=== PATIENT | female | born 1935 | race Caucasian/White ===

== ENCOUNTER 2016-09-05 11:23 | Emergency (ER) | payer OTHER ==
[~2016-09-05 11:23] MED LIST: LISINOPRIL10 MG PO; PRINIVIL5 MG PO; SYNTHROID50 MCG PO; TRAZODONE HCL50 MG PO; VITAMIN D-31000 UNIT PO
--- NOTE | 2016-09-05 13:31 | DIAGNOSTIC IMAGING REPORT ---
PROCEDURE: XR ELBOW 3 OR 4 VIEWS - LEFT INDICATION: TRAUMA/INJURY TECHNIQUE: Four views. COMPARISON: None. FINDINGS: Osseous structures, joint spaces, and soft tissues are normal. No evidence of an effusion. IMPRESSION: 1. Normal left elbow.
--- NOTE | 2016-09-05 13:35 | DIAGNOSTIC IMAGING REPORT ---
PROCEDURE: XR RIBS UNILAT W/PA CHEST-LT INDICATION: TRAUMA/INJURY TECHNIQUE: P A chest and two views of the left ribs. COMPARISON: Chest x-ray 12/10/2015 FINDINGS: Acute nondisplaced fracture of the left 12th rib and mildly displaced left eleventh rib. Lungs are clear. Heart size, mediastinum and pulmonary vessels are normal. IMPRESSION: 1. Acute fractures of the left eleventh and twelfth ribs 2. Results discussed with Dr. Grady
--- NOTE | 2016-09-05 14:33 | ED CLINICAL REPORT ---
Clinical Report - Physicians/Mid Levels [facility] [address] [place] [address] 09/05/2016 11:24 Patient: YAHAIRA STALLWORTH Time Seen: 11:46; initial patient contact. Arrived- By private vehicle. Historian- patient. HISTORY OF PRESENT ILLNESS Chief Complaint: Injury to CHEST and BACK. Location of injuries- chest, mid back and left elbow. The injury occurred about 2 days ago. Fell while walking and landed on the ground; tripped. Occurred at home. The patient complains of moderate pain in the chest, mid back and left upper extremity (elbow). No blow to the head, neck pain or loss of consciousness. Not dazed. Seen at [facility] 2 days ago, head CT. No plain films done. Serum EtOH level 154. REVIEW OF SYSTEMS No numbness, weakness, headache, difficulty breathing or laceration. She has had chest pain. All systems otherwise negative, except as recorded above. PAST HISTORY Drug Poisoning. Changed Mental Status. Thyroid Disease. Insomnia. Dementia. Hypertension. SURGERIES: Hysterectomy. 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 Levothyrixoine 50mcg 1 tab.-morning. Lisinopril 5mg 1 tab twice daily. Trazodone 50mg -1/2 tab at bedtime. Vitamin D3 2,000 1 daily. Allergies: No Known Drug Allergy. SOCIAL HISTORY Never smoker. Occasional alcohol use. No drug use. PHYSICAL EXAM Appearance: Alert. Oriented X3. No acute distress. Head: Forehead: mild tenderness and swelling and small ecchymosis of the upper left side of the forehead. Eyes: Pupils equal, round and reactive to light. EOM intact. ENT: No dental injury. Pharynx normal. Neck: Painless ROM. Non-tender. CVS: Heart sounds normal. Rate normal. Rhythm normal. Respiratory: Chest wall injury: moderate tenderness located in the left and lateral chest. No splinting present. No paradoxical movement. Breath sounds normal. Abdomen: No visible injury. Soft and nontender. Bowel sounds normal. Skin: Skin intact. Skin warm and dry. Extremities: Left elbow: mild erythema, moderate tenderness and medium sized ecchymosis. No swelling. Neuro: Oriented X 3. LABS, X-RAYS, AND EKG Sternum / Ribs X-rays: On the left, 11th and 12th rib fracture(s) present. Views: left ribs. PA and lateral of chest. Technique: good. The X-rays were independently viewed by me and interpreted contemporaneously by me. Prior films were not available for comparison. Lt Elbow X-ray: No fracture. Normal alignment. No bony lesion, air in the soft tissue or foreign body. Soft tissues normal. Joint spaces normal. Views: 2 view elbow series. Technique: good. The X-rays were independently viewed by me and interpreted contemporaneously by me. Prior films were not available for comparison. PROGRESS AND PROCEDURES Disposition: Discharged home in good condition. Condition: good. CLINICAL IMPRESSION Multiple left rib fractures. Single contusion with soft tissue hematoma to the left elbow. INSTRUCTIONS Apply ice for 20 minutes five times a day. Don't apply ice directly to skin. No alcohol. Your Current Medications: CONTINUE TAKING THE FOLLOWING MEDICATIONS: Levothyrixoine 50mcg 1 tab.-morning*. Lisinopril 5mg 1 tab twice daily*. Medications pulled from prior visit: activities specialist/patient does not recall meds *. Trazodone 50mg -1/2 tab at bedtime*. Vitamin D3 2,000 1 daily*. Prescription Medications: Hydrocodone/APAP 5mg / 325mg: take 1 orally every 6 hours as needed for pain. Dispense twenty (20). No refill. Follow-up: Follow up with your doctor in about two days. Call for an appointment. Blood pressure screening was not performed during this visit because the patient has an active diagnosis of hypertension. (Electronically signed by Jorge Grady Dr. 09/05/2016 22:26)
--- NOTE | 2016-09-05 14:33 | ED CLINICAL REPORT ---
Clinical Report - Physicians/Mid Levels [facility] [address] [place] [address] 09/05/2016 11:24 Patient: YAHAIRA STALLWORTH Time Seen: 11:46; initial patient contact. Arrived- By private vehicle. Historian- patient. HISTORY OF PRESENT ILLNESS Chief Complaint: Injury to CHEST and BACK. Location of injuries- chest, mid back and left elbow. The injury occurred about 2 days ago. Fell while walking and landed on the ground; tripped. Occurred at home. The patient complains of moderate pain in the chest, mid back and left upper extremity (elbow). No blow to the head, neck pain or loss of consciousness. Not dazed. Seen at [facility] 2 days ago, head CT. No plain films done. Serum EtOH level 154. REVIEW OF SYSTEMS No numbness, weakness, headache, difficulty breathing or laceration. She has had chest pain. All systems otherwise negative, except as recorded above. PAST HISTORY Drug Poisoning. Changed Mental Status. Thyroid Disease. Insomnia. Dementia. Hypertension. SURGERIES: Hysterectomy. 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 Levothyrixoine 50mcg 1 tab.-morning. Lisinopril 5mg 1 tab twice daily. Trazodone 50mg -1/2 tab at bedtime. Vitamin D3 2,000 1 daily. Allergies: No Known Drug Allergy. SOCIAL HISTORY Never smoker. Occasional alcohol use. No drug use. PHYSICAL EXAM Appearance: Alert. Oriented X3. No acute distress. Head: Forehead: mild tenderness and swelling and small ecchymosis of the upper left side of the forehead. Eyes: Pupils equal, round and reactive to light. EOM intact. ENT: No dental injury. Pharynx normal. Neck: Painless ROM. Non-tender. CVS: Heart sounds normal. Rate normal. Rhythm normal. Respiratory: Chest wall injury: moderate tenderness located in the left and lateral chest. No splinting present. No paradoxical movement. Breath sounds normal. Abdomen: No visible injury. Soft and nontender. Bowel sounds normal. Skin: Skin intact. Skin warm and dry. Extremities: Left elbow: mild erythema, moderate tenderness and medium sized ecchymosis. No swelling. Neuro: Oriented X 3. LABS, X-RAYS, AND EKG Sternum / Ribs X-rays: On the left, 11th and 12th rib fracture(s) present. Views: left ribs. PA and lateral of chest. Technique: good. The X-rays were independently viewed by me and interpreted contemporaneously by me. Prior films were not available for comparison. Lt Elbow X-ray: No fracture. Normal alignment. No bony lesion, air in the soft tissue or foreign body. Soft tissues normal. Joint spaces normal. Views: 2 view elbow series. Technique: good. The X-rays were independently viewed by me and interpreted contemporaneously by me. Prior films were not available for comparison. PROGRESS AND PROCEDURES Disposition: Discharged home in good condition. Condition: good. CLINICAL IMPRESSION Multiple left rib fractures. Single contusion with soft tissue hematoma to the left elbow. INSTRUCTIONS Apply ice for 20 minutes five times a day. Don't apply ice directly to skin. No alcohol. Your Current Medications: CONTINUE TAKING THE FOLLOWING MEDICATIONS: Levothyrixoine 50mcg 1 tab.-morning*. Lisinopril 5mg 1 tab twice daily*. 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 Trazodone 50mg -1/2 tab at bedtime*. Vitamin D3 2,000 1 daily*. Prescription Medications: Hydrocodone/APAP 5mg / 325mg: take 1 orally every 6 hours as needed for pain. Dispense twenty (20). No refill. Follow-up: Follow up with your doctor in about two days. Call for an appointment. Blood pressure screening was not performed during this visit because the patient has an active diagnosis of hypertension. (Electronically signed by Jorge Grady Dr. 09/05/2016 22:26)
--- NOTE | 2016-09-05 14:34 | ED ORDER SUMMARY ---
..... Patient: YAHAIRA STALLWORTH OrderSheet [facility] VisitID: [id number] [address] [place] [address] 80y, F Registration Date/Time: 09/05/2016 ORDER SHEET Weight: 61.2 kg (stated) Allergies: No Known Drug Allergy GENERAL ORDERS: Elbow 3 or 4V Left Urgent (12:48 09/05/2016 Delfino Serna) (Ack 12:50 KHoerner) (13:20 KHoerner) Ribs Unilat w PA Chest Left Urgent (12:48 09/05/2016 Delfino Serna) (Ack 12:50 KHoerner) (13:20 KHoerner) MEDICATION ORDERS: Tramadol PO 50 mg (NOW) (12:49 09/05/2016 Delfino Serna) (Ack 12:52 Niharika R.N.) (12:54 Niharika R.N.) IV FLUIDS: ORDER SHEET NOTES: [Electronically signed by Katie Thacker R.N. (19:11 09/05/2016)] [Electronically signed by Jorge Grady Dr. (22:26 09/05/2016)] [Electronically locked/signed by Katie Thacker R.N. (19:11 09/05/2016)]
--- NOTE | 2016-09-05 14:34 | ED NURSING NOTES ---
Clinical Report - Nurses [facility] [address] [place] [address] 09/05/2016 11:24 Patient: YAHAIRA STALLWORTH TRIAGE Triage time 11:35. Acuity: LEVEL 4. Chief Complaint: BACK PAIN. Alert. No acute distress. ( Teletype Clerk states pt. had a GLF x2 days ago. This happened in the middle of the night; EMS was notified and she was brought to [facility] ED. She was released to her son that night but she is concerned because Prov. did not take any xrays and she is still having a lot of pain.). SEPSIS SCREEN: Sepsis Screen. Negative (no infection suspected/documented). SATURNINO COMA SCORE: [place] Coma Scale: 15- eyes open spontaneously (4); best verbal response- oriented x 4 (5); best motor response- obeys commands (6). --11:41 Leigh Ma R.N. 11:34 09/05/16. BP: 159/83. HR: 76. RR: 16. O2 saturation: 96%. Temp: 98.0 F. Pain level now 04/17. --11:41 Leigh Ma R.N. Weight: 61.2 kg stated. Height/Length: 62 inches Per Patient. BMI: 24.7. --11:37 Leigh Ma R.N. Medications Levothyrixoine 50mcg 1 tab.-morning. Lisinopril 5mg 1 tab twice daily. Trazodone 50mg -1/2 tab at bedtime. Vitamin D3 2,000 1 daily. --12:50 Leigh Ma R.N. 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 --12:51 Leigh Ma R.N. Allergies No Known Drug Allergy. --11:36 Leigh Ma R.N. History Arrived by private vehicle. 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 Accompanied by dipper machine operator. Primary physician ([facility]). Onset. (2 night ago). History of recent trauma- fall (GLF). Treatment BACTERIOLOGIST INDUSTRIAL: None. PAST MEDICAL HX: Immunizations: up-to-date. SOCIAL HX: Never smoker. No alcohol use or drug use. No infectious disease exposure. ABUSE ASSESSMENT: Abuse assessment: The patient was asked "Do you feel safe in your home?" and "Has anyone hurt you or threatened to hurt you?". No report of abuse. SELF HARM ASSESSMENT: A self harm assessment was performed. The patient answered "no" to the question "Do you have thoughts of harming or killing yourself?" and "Have you recently had thoughts about harming or killing others?". NUTRITIONAL RISK ASSESSMENT: The nutritional risk assessment revealed no deficiencies. LEARNING NEEDS ASSESSMENT: The learning needs assessment revealed no barriers. 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 --11:41 Leigh Ma R.N. PROBLEMS: Drug Poisoning. Changed Mental Status. Thyroid Disease. Insomnia. Dementia. Hypertension. --11:39 Leigh Ma R.N. ADDITIONAL SURGERIES: Hysterectomy. --11:39 Leigh Ma R.N. Interventions ID band on patient. Transported via wheelchair. --11:41 Leigh Ma R.N. PHYSICAL ASSESSMENT To room via wheelchair. GENERAL / NEURO / PSYCH: Alert. Appears in no acute distress. RESPIRATORY: Respirations not labored. CVS: Capillary refill less than 2 seconds. EXTREMITIES: Sensation intact in extremities. ROM of extremities within normal limits. SKIN: Bruising noted; present on arrival. --11:43 Leigh Ma R.N. SKIN: Bruising noted. (left arm and left lower back.). --11:48 Leigh Ma R.N. NURSING PROGRESS NOTES Patient gowned. Head of bed elevated. Two patient identifiers checked. Call light placed in reach. Side rails up x 2. Bed placed in lowest position. Brakes of bed on. Patient ready for evaluation- chart flagged. --11:43 Leigh Ma R.N. 12:20. Assisted patient to bedside commode; tolerated well. --12:50 Leigh Ma R.N. ( records from [place] obtained. No medications noted in med records from [facility] --12:51 Leigh Ma R.N. 12:54 09/05/2016 Tramadol (TraMADol HCl) PO 50 mg given. Allergies verified, confirmed 5 rights and sedative warning given to the patient. --12:54 Leigh Ma R.N. Reassessment after medication administered. She has had no adverse reaction. Overall patient status- she states feels better. Patient informed about reason for wait and about plan of care. --13:52 Leigh Ma R.N. 13:50 09/05/16. BP: 180/52. HR: 78. RR: 15. O2 saturation: 98%. --13:52 Leigh Ma R.N. DISPOSITION / DISCHARGE Departure time: 14:55 Sep 05 2016. Condition at departure: improved and stable. No learning barriers present. Discharge instructions provided and reviewed with the patient and family. Reviewed medication(s) side effects, precautions and dosing information. Prescription(s) given to the carnallite plant operator. Patient and carnallite plant operator verbalized understanding. Written instructions provided in Polish. The patient was discharged by the physician. She was discharged home and accompanied by carnallite plant operator. She left the Emergency Department ambulatory and via private vehicle. Interline Clerk driving. --19:10 Katie Thacker R.N. Locked/Released at 09/05/2016 19:11 by Katie Thacker R.N.
--- NOTE | 2016-09-05 14:34 | ED ORDER SUMMARY ---
..... Patient: YAHAIRA STALLWORTH OrderSheet [facility] VisitID: [id number] [address] [place] [address] 80y, F Registration Date/Time: 09/05/2016 ORDER SHEET Weight: 61.2 kg (stated) Allergies: No Known Drug Allergy GENERAL ORDERS: Elbow 3 or 4V Left Urgent (12:48 09/05/2016 Delfino Serna) (Ack 12:50 KHoerner) (13:20 KHoerner) Ribs Unilat w PA Chest Left Urgent (12:48 09/05/2016 Delfino Serna) (Ack 12:50 KHoerner) (13:20 KHoerner) MEDICATION ORDERS: Tramadol PO 50 mg (NOW) (12:49 09/05/2016 Delfino Serna) (Ack 12:52 Niharika R.N.) (12:54 Niharika R.N.) IV FLUIDS: ORDER SHEET NOTES: [Electronically signed by Katie Thacker R.N. (19:11 09/05/2016)] [Electronically signed by Jorge Grady Dr. (22:26 09/05/2016)] [Electronically locked/signed by Katie Thacker R.N. (19:11 09/05/2016)]
--- NOTE | 2016-09-05 14:34 | ED NURSING NOTES ---
Clinical Report - Nurses [facility] [address] [place] [address] 09/05/2016 11:24 Patient: YAHAIRA STALLWORTH TRIAGE Triage time 11:35. Acuity: LEVEL 4. Chief Complaint: BACK PAIN. Alert. No acute distress. ( Material Reprocessing Associate states pt. had a GLF x2 days ago. This happened in the middle of the night; EMS was notified and she was brought to [facility] ED. She was released to her son that night but she is concerned because Prov. did not take any xrays and she is still having a lot of pain.). SEPSIS SCREEN: Sepsis Screen. Negative (no infection suspected/documented). SATURNINO COMA SCORE: [place] Coma Scale: 15- eyes open spontaneously (4); best verbal response- oriented x 4 (5); best motor response- obeys commands (6). --11:41 Leigh Ma R.N. 11:34 09/05/16. BP: 159/83. HR: 76. RR: 16. O2 saturation: 96%. Temp: 98.0 F. Pain level now 04/17. --11:41 Leigh Ma R.N. Weight: 61.2 kg stated. Height/Length: 62 inches Per Patient. BMI: 24.7. --11:37 Leigh Ma R.N. Medications Levothyrixoine 50mcg 1 tab.-morning. Lisinopril 5mg 1 tab twice daily. Trazodone 50mg -1/2 tab at bedtime. Vitamin D3 2,000 1 daily. --12:50 Leigh Ma R.N. 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 --12:51 Leigh Ma R.N. Allergies No Known Drug Allergy. --11:36 Leigh Ma R.N. History Arrived by private vehicle. 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 Primary physician ([facility]). Onset. (2 night ago). History of recent trauma- fall (GLF). Treatment TRAVEL MONEY ADVISOR: None. PAST MEDICAL HX: Immunizations: up-to-date. SOCIAL HX: Never smoker. No alcohol use or drug use. No infectious disease exposure. ABUSE ASSESSMENT: Abuse assessment: The patient was asked "Do you feel safe in your home?" and "Has anyone hurt you or threatened to hurt you?". No report of abuse. SELF HARM ASSESSMENT: A self harm assessment was performed. The patient answered "no" to the question "Do you have thoughts of harming or killing yourself?" and "Have you recently had thoughts about harming or killing others?". NUTRITIONAL RISK ASSESSMENT: The nutritional risk assessment revealed no deficiencies. LEARNING NEEDS ASSESSMENT: The learning needs assessment revealed no barriers. 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 --11:41 Leigh Ma R.N. PROBLEMS: Drug Poisoning. Changed Mental Status. Thyroid Disease. Insomnia. Dementia. Hypertension. --11:39 Leigh Ma R.N. ADDITIONAL SURGERIES: Hysterectomy. --11:39 Leigh Ma R.N. Interventions ID band on patient. Transported via wheelchair. --11:41 Leigh Ma R.N. PHYSICAL ASSESSMENT To room via wheelchair. GENERAL / NEURO / PSYCH: Alert. Appears in no acute distress. RESPIRATORY: Respirations not labored. CVS: Capillary refill less than 2 seconds. EXTREMITIES: Sensation intact in extremities. ROM of extremities within normal limits. SKIN: Bruising noted; present on arrival. --11:43 Leigh Ma R.N. SKIN: Bruising noted. (left arm and left lower back.). --11:48 Leigh Ma R.N. NURSING PROGRESS NOTES Patient gowned. Head of bed elevated. Two patient identifiers checked. Call light placed in reach. Side rails up x 2. Bed placed in lowest position. Brakes of bed on. Patient ready for evaluation- chart flagged. --11:43 Leigh Ma R.N. 12:20. Assisted patient to bedside commode; tolerated well. --12:50 Leigh Ma R.N. ( records from [place] obtained. No medications noted in med records from [facility] --12:51 Leigh Ma R.N. 12:54 09/05/2016 Tramadol (TraMADol HCl) PO 50 mg given. Allergies verified, confirmed 5 rights and sedative warning given to the patient. --12:54 eLigh Ma R.N. Reassessment after medication administered. She has had no adverse reaction. Overall patient status- she states feels better. Patient informed about reason for wait and about plan of care. --13:52 Leigh Ma R.N. 13:50 09/05/16. BP: 180/52. HR: 78. RR: 15. O2 saturation: 98%. --13:52 Leigh Ma R.N. DISPOSITION / DISCHARGE Departure time: 14:55 Sep 05 2016. Condition at departure: improved and stable. No learning barriers present. Discharge instructions provided and reviewed with the patient and family. Reviewed medication(s) side effects, precautions and dosing information. Prescription(s) given to the lead man over all dies in pattern shop. Patient and lead man over all dies in pattern shop verbalized understanding. Written instructions provided in Hebrew. The patient was discharged by the physician. She was discharged home and accompanied by lead man over all dies in pattern shop. She left the Emergency Department ambulatory and via private vehicle. Oven Technician driving. --19:10 Katie Thacker R.N. Locked/Released at 09/05/2016 19:11 by Katie Thacker R.N.
--- NOTE | 2016-09-05 22:26 | ED DISCHARGE INSTRUCTIONS ---
Patient: YAHAIRA STALLWORTH General Instructions [facility] VisitID: [id number] [address] [place] [address] 80y, F Registration Date/Time: 09/05/2016 Multiple left rib fractures. Single contusion with soft tissue hematoma to the left elbow. INSTRUCTIONS Apply ice for 20 minutes five times a day. Don't apply ice directly to skin. No alcohol. Your Current Medications: CONTINUE TAKING THE FOLLOWING MEDICATIONS: Levothyrixoine 50mcg 1 tab.-morning*. Lisinopril 5mg 1 tab twice daily*. 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 Trazodone 50mg -1/2 tab at bedtime*. Vitamin D3 2,000 1 daily*. Prescription Medications: Hydrocodone/APAP 5mg / 325mg: take 1 orally every 6 hours as needed for pain. Dispense twenty (20). No refill. Follow-up: Follow up with your doctor in about two days. Call for an appointment. Blood pressure screening was not performed during this visit because the patient has an active diagnosis of hypertension. ADDITIONAL INFORMATION Rib Fracture You have a fracture (break) of one or more ribs. Rib fractures do not require a cast like other bones. They will heal by themselves in about 4-6 weeks. The first 3-4 weeks will be the most painful because deep breathing, coughing or changing position from sitting to lying down, may cause the broken ends to move slightly. Home Care: Rest. You should not be doing any heavy lifting or strenuous exertion until the pain goes away. Because it hurts to breathe when you have a broken rib, there is risk of getting pneumonia from poor airflow through your lungs. To prevent this: Take four very deep breaths at least four times a day (exhale through pursed lips as if you are blowing up a balloon). If an "incentive spirometer" (breathing exercise device) was given to you, use it at least four times a day, or as directed. Apply an ice pack (ice cubes in a plastic bag, wrapped in a towel) over the injured area for 20 minutes every 1-2 hours the first day. Continue with ice packs 3-4 times a day for the next two days, then as needed for the relief of pain and swelling. You may use acetaminophen (Tylenol) or ibuprofen (Motrin, Advil) to control pain, unless another pain medicine was prescribed. [NOTE: If you have chronic liver or kidney disease or ever had a stomach ulcer or GI bleeding, talk with your doctor before using these medicines.] If your pain is not controlled by the treatment given, contact your doctor. Sometimes a stronger pain medicine may be needed. A nerve block (numbing the nerve between the ribs) can be performed in case of severe pain. Follow Up with your doctor during the next week, or as advised. Rarely, a broken rib will cause complications within the first few days that may not be evident during your initial exam (such as, collapsed lung, bleeding around the lung or into the abdomen, or pneumonia). Therefore, watch for the signs below. [NOTE: If x-rays were taken, they will be reviewed by a radiologist. You will be notified of any new findings that may affect your care.] Get Prompt Medical Attention if any of the following occur: Shortness of breath Increasing chest pain with breathing Dizziness, weakness or fainting New or worsening abdominal pain Fever of 100.4F (38C) or higher, or as directed by your healthcare provider Congested cough Hydrocodone Bitartrate, Acetaminophen Oral tablet What is this medicine? ACETAMINOPHEN; HYDROCODONE (a set a TAMIR keith fen; yennifer droe KOE done) is a pain reliever. It is used to treat mild to moderate pain. How should I use this medicine? Take this medicine by mouth. Swallow it with a full glass of water. Follow the directions on the prescription label. If the medicine upsets your stomach, take the medicine with food or milk. Do not take more than you are told to take. Talk to your polymer scientist regarding the use of this medicine in children. This medicine is not approved for use in children. What side effects may I notice from receiving this medicine? Side effects that you should report to your doctor or health primary care sales representative as soon as possible: allergic reactions like skin rash, itching or hives, swelling of the face, lips, or tongue breathing problems confusion feeling faint or lightheaded, falls stomach pain yellowing of the eyes or skin Side effects that usually do not require medical attention (report to your doctor or health primary care sales representative if they continue or are bothersome): nausea, vomiting stomach upset What may interact with this medicine? alcohol antihistamines isoniazid medicines for depression, anxiety, or psychotic disturbances medicines for sleep muscle relaxants naltrexone narcotic medicines (opiates) for pain phenobarbital ritonavir tramadol What if I miss a dose? If you miss a dose, take it as soon as you can. If it is almost time for your next dose, take only that dose. Do not take double or extra doses. Where should I keep my medicine? Keep out of the reach of children. This medicine can be abused. Keep your medicine in a safe place to protect it from theft. Do not share this medicine with anyone. Selling or giving away this medicine is dangerous and against the law. Store at room temperature between 15 and 30 degrees C (59 and 86 degrees F). Protect from light. Keep container tightly closed. Throw away any unused medicine after the expiration date. Discard unused medicine and used packaging carefully. Pets and children can be harmed if they find used or lost packages. What should I tell my health care provider before I take this medicine? They need to know if you have any of these conditions: brain tumor Crohn's disease, inflammatory bowel disease, or ulcerative colitis drink more than 3 alcohol-containing drinks per day drug abuse or addiction head injury heart or circulation problems kidney disease or problems going to the bathroom liver disease lung disease, asthma, or breathing problems an unusual or allergic reaction to acetaminophen, hydrocodone, other opioid analgesics, other medicines, foods, dyes, or preservatives or trying to get breast-feeding What should I watch for while using this medicine? Tell your doctor or health primary care sales representative if your pain does not go away, if it gets worse, or if you have new or a different type of pain. You may develop tolerance to the medicine. Tolerance means that you will need a higher dose of the medicine for pain relief. Tolerance is normal and is expected if you take the medicine for a long time. Do not suddenly stop taking your medicine because you may develop a severe reaction. Your body becomes used to the medicine. This does NOT mean you are addicted. Addiction is a behavior related to getting and using a drug for a non-medical reason. If you have pain, you have a medical reason to take pain medicine. Your doctor will tell you how much medicine to take. If your doctor wants you to stop the medicine, the dose will be slowly lowered over time to avoid any side effects. You may get drowsy or dizzy when you first start taking the medicine or change doses. Do not drive, use machinery, or do anything that may be dangerous until you know how the medicine affects you. Stand or sit up slowly. There are different types of narcotic medicines (opiates) for pain. If you take more than one type at the same time, you may have more side effects. Give your health care provider a list of all medicines you use. Your doctor will tell you how much medicine to take. Do not take more medicine than directed. Call emergency for help if you have problems breathing. The medicine will cause constipation. Try to have a bowel movement at least every 2 to 3 days. If you do not have a bowel movement for 3 days, call your doctor or health primary care sales representative. Too much acetaminophen can be very dangerous. Do not take Tylenol (acetaminophen) or medicines that contain acetaminophen with this medicine. Many non-prescription medicines contain acetaminophen. Always read the labels carefully. You have been given the following additional information: Fracture, Rib Hydrocodone Bitartrate, Acetaminophen Oral tablet (Electronically signed by Jorge Grady Dr. 09/05/2016 22:26)
--- NOTE | 2016-09-05 22:26 | ED MED RECONCILIATION SUMMARY ---
Patient: YAHAIRA STALLWORTH Medication Reconciliation Report [facility] VisitID: [id number] [address] [place] [address] 80y, F Registration Date/Time: 09/05/2016 Weight: 61.2 kg Height/Length: 62 in. 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 The following Medications were given to the patient in the Emergency Department: Tramadol [PO] PO 50 mg, administered: 09/05/2016 12:54:00 PM The following Medications were prescribed to the patient: Hydrocodone/APAP 5mg / 325mg: take 1 orally every 6 hours as needed for pain. Dispense twenty (20). No refill. -- Jorge Grady Dr.
--- NOTE | 2016-09-05 22:26 | ED MED RECONCILIATION SUMMARY ---
Patient: YAHAIRA STALLWORTH Medication Reconciliation Report [facility] VisitID: [id number] [address] [place] [address] 80y, F Registration Date/Time: 09/05/2016 Weight: 61.2 kg Height/Length: 62 in. 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 The following Medications were given to the patient in the Emergency Department: Tramadol [PO] PO 50 mg, administered: 09/05/2016 12:54:00 PM The following Medications were prescribed to the patient: Hydrocodone/APAP 5mg / 325mg: take 1 orally every 6 hours as needed for pain. Dispense twenty (20). No refill. -- Jorge Grady Dr.
--- NOTE | 2016-09-05 22:26 | ED DISCHARGE INSTRUCTIONS ---
Patient: YAHAIRA STALLWORTH General Instructions [facility] VisitID: [id number] [address] [place] [address] 80y, F Registration Date/Time: 09/05/2016 Multiple left rib fractures. Single contusion with soft tissue hematoma to the left elbow. INSTRUCTIONS Apply ice for 20 minutes five times a day. Don't apply ice directly to skin. No alcohol. Your Current Medications: CONTINUE TAKING THE FOLLOWING MEDICATIONS: Levothyrixoine 50mcg 1 tab.-morning*. Lisinopril 5mg 1 tab twice daily*. 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 Trazodone 50mg -1/2 tab at bedtime*. Vitamin D3 2,000 1 daily*. Prescription Medications: Hydrocodone/APAP 5mg / 325mg: take 1 orally every 6 hours as needed for pain. Dispense twenty (20). No refill. Follow-up: Follow up with your doctor in about two days. Call for an appointment. Blood pressure screening was not performed during this visit because the patient has an active diagnosis of hypertension. ADDITIONAL INFORMATION Rib Fracture You have a fracture (break) of one or more ribs. Rib fractures do not require a cast like other bones. They will heal by themselves in about 4-6 weeks. The first 3-4 weeks will be the most painful because deep breathing, coughing or changing position from sitting to lying down, may cause the broken ends to move slightly. Home Care: Rest. You should not be doing any heavy lifting or strenuous exertion until the pain goes away. Because it hurts to breathe when you have a broken rib, there is risk of getting pneumonia from poor airflow through your lungs. To prevent this: Take four very deep breaths at least four times a day (exhale through pursed lips as if you are blowing up a balloon). If an "incentive spirometer" (breathing exercise device) was given to you, use it at least four times a day, or as directed. Apply an ice pack (ice cubes in a plastic bag, wrapped in a towel) over the injured area for 20 minutes every 1-2 hours the first day. Continue with ice packs 3-4 times a day for the next two days, then as needed for the relief of pain and swelling. You may use acetaminophen (Tylenol) or ibuprofen (Motrin, Advil) to control pain, unless another pain medicine was prescribed. [NOTE: If you have chronic liver or kidney disease or ever had a stomach ulcer or GI bleeding, talk with your doctor before using these medicines.] If your pain is not controlled by the treatment given, contact your doctor. Sometimes a stronger pain medicine may be needed. A nerve block (numbing the nerve between the ribs) can be performed in case of severe pain. Follow Up with your doctor during the next week, or as advised. Rarely, a broken rib will cause complications within the first few days that may not be evident during your initial exam (such as, collapsed lung, bleeding around the lung or into the abdomen, or pneumonia). Therefore, watch for the signs below. [NOTE: If x-rays were taken, they will be reviewed by a radiologist. You will be notified of any new findings that may affect your care.] Get Prompt Medical Attention if any of the following occur: Shortness of breath Increasing chest pain with breathing Dizziness, weakness or fainting New or worsening abdominal pain Fever of 100.4F (38C) or higher, or as directed by your healthcare provider Congested cough Hydrocodone Bitartrate, Acetaminophen Oral tablet What is this medicine? ACETAMINOPHEN; HYDROCODONE (a set a TAMIR keith fen; yennifer droe KOE done) is a pain reliever. It is used to treat mild to moderate pain. How should I use this medicine? Take this medicine by mouth. Swallow it with a full glass of water. Follow the directions on the prescription label. If the medicine upsets your stomach, take the medicine with food or milk. Do not take more than you are told to take. Talk to your salesperson household appliances regarding the use of this medicine in children. This medicine is not approved for use in children. What side effects may I notice from receiving this medicine? Side effects that you should report to your doctor or health healthcare marketer as soon as possible: allergic reactions like skin rash, itching or hives, swelling of the face, lips, or tongue breathing problems confusion feeling faint or lightheaded, falls stomach pain yellowing of the eyes or skin Side effects that usually do not require medical attention (report to your doctor or health healthcare marketer if they continue or are bothersome): nausea, vomiting stomach upset What may interact with this medicine? alcohol antihistamines isoniazid medicines for depression, anxiety, or psychotic disturbances medicines for sleep muscle relaxants naltrexone narcotic medicines (opiates) for pain phenobarbital ritonavir tramadol What if I miss a dose? If you miss a dose, take it as soon as you can. If it is almost time for your next dose, take only that dose. Do not take double or extra doses. Where should I keep my medicine? Keep out of the reach of children. This medicine can be abused. Keep your medicine in a safe place to protect it from theft. Do not share this medicine with anyone. Selling or giving away this medicine is dangerous and against the law. Store at room temperature between 15 and 30 degrees C (59 and 86 degrees F). Protect from light. Keep container tightly closed. Throw away any unused medicine after the expiration date. Discard unused medicine and used packaging carefully. Pets and children can be harmed if they find used or lost packages. What should I tell my health care provider before I take this medicine? They need to know if you have any of these conditions: brain tumor Crohn's disease, inflammatory bowel disease, or ulcerative colitis drink more than 3 alcohol-containing drinks per day drug abuse or addiction head injury heart or circulation problems kidney disease or problems going to the bathroom liver disease lung disease, asthma, or breathing problems an unusual or allergic reaction to acetaminophen, hydrocodone, other opioid analgesics, other medicines, foods, dyes, or preservatives or trying to get breast-feeding What should I watch for while using this medicine? Tell your doctor or health healthcare marketer if your pain does not go away, if it gets worse, or if you have new or a different type of pain. You may develop tolerance to the medicine. Tolerance means that you will need a higher dose of the medicine for pain relief. Tolerance is normal and is expected if you take the medicine for a long time. Do not suddenly stop taking your medicine because you may develop a severe reaction. Your body becomes used to the medicine. This does NOT mean you are addicted. Addiction is a behavior related to getting and using a drug for a non-medical reason. If you have pain, you have a medical reason to take pain medicine. Your doctor will tell you how much medicine to take. If your doctor wants you to stop the medicine, the dose will be slowly lowered over time to avoid any side effects. You may get drowsy or dizzy when you first start taking the medicine or change doses. Do not drive, use machinery, or do anything that may be dangerous until you know how the medicine affects you. Stand or sit up slowly. There are different types of narcotic medicines (opiates) for pain. If you take more than one type at the same time, you may have more side effects. Give your health care provider a list of all medicines you use. Your doctor will tell you how much medicine to take. Do not take more medicine than directed. Call emergency for help if you have problems breathing. The medicine will cause constipation. Try to have a bowel movement at least every 2 to 3 days. If you do not have a bowel movement for 3 days, call your doctor or health healthcare marketer. Too much acetaminophen can be very dangerous. Do not take Tylenol (acetaminophen) or medicines that contain acetaminophen with this medicine. Many non-prescription medicines contain acetaminophen. Always read the labels carefully. You have been given the following additional information: Fracture, Rib Hydrocodone Bitartrate, Acetaminophen Oral tablet (Electronically signed by Jorge Grady Dr. 09/05/2016 22:26)
--- NOTE | 2016-09-05 22:26 | ED MAR SUMMARY ---
..... Medication Administration Record [facility] [address] [place] [place] [address] Patient: YAHAIRA STALLWORTH Visit ID: [id number] 80y, F Weight: 61.2 kg Height/Length: 62 in BMI: 24.7 ALLERGIES: No Known Drug Allergy Given 12:54 09/05/2016 Leigh Ma RTheresa Medication Administered: TRAMADOL [PO] (TRAMADOL HCL), Dose: 50 mg PO. Medication Ordered: Tramadol PO 50 mg (NOW).
--- NOTE | 2016-09-05 22:26 | ED MAR SUMMARY ---
..... Medication Administration Record [facility] [address] [place] [address] Patient: YAHAIRA STALLWORTH Visit ID: [id number] 80y, F Weight: 61.2 kg Height/Length: 62 in BMI: 24.7 ALLERGIES: No Known Drug Allergy Given 12:54 09/05/2016 Leigh Ma RTheresa Medication Administered: TRAMADOL [PO] (TRAMADOL HCL), Dose: 50 mg PO. Medication Ordered: Tramadol PO 50 mg (NOW).
== END 2016-09-05 14:55 | disposition home or self-care (01) ==
LOC: ED SRH 11:23
DX: S22.42XA Multiple fractures of ribs, left side, initial encounter for closed fracture (principal); S50.02XA Contusion of left elbow, initial encounter; W01.0XXA Fall on same level from slipping, tripping and stumbling without subsequent striking against object, initial encounter; Y93.01 Activity, walking, marching and hiking; Y92.9 Unspecified place or not applicable; Y99.9 Unspecified external cause status; I10 Essential (primary) hypertension; E07.9 Disorder of thyroid, unspecified; Z79.899 Other long term (current) drug therapy

== ENCOUNTER 2016-10-18 08:20 | Emergency (ER) | payer OTHER ==
--- NOTE | 2016-10-18 09:21 | ED NURSING NOTES ---
Clinical Report - Nurses [facility] [address] [place] [address] 10/18/2016 8:21 Patient: YAHAIRA STALLWORTH TRIAGE Triage time 08:30. Acuity: LEVEL 4. Chief Complaint: ANXIETY. 08:30 10/18/16. 08:30 10/18/16. Alert. No acute distress. ( Pt did not sleep all night and pacing the floor, crying. Pt states she is stressed but does not know the stessors. Per caregiver pt has dementia.). SEPSIS SCREEN: Sepsis Screen. Negative (no infection suspected/documented). JUVENTINO COMA SCORE: Juventino Coma Scale: 15- eyes open spontaneously (4); best verbal response- oriented x 4 (5); best motor response- obeys commands (6). --08:36 Tee Sarabia R.N. <<STRICKEN ENTRY-- 08:29 10/18/16. BP: 166. HR: 85. RR: 18. O2 saturation: 100%. Temp: 98.2 F (oral). Pain level now: 0/10. --08:36 Tee Sarabia R.N. --END STRIKE>> Correction. --08:37 Tee Sarabia R.N. 08:37 10/18/16. BP: 177/66. HR: 80. RR: 22. O2 saturation: 100%. Temp: 98.2 F (oral). --08:38 Tee Sarabia R.N. Weight: 70.3 kg stated. Height/Length: 62 inches Per Patient. BMI: 28.4. --08:32 Tee Sarabia R.N. Medications Trazodone 50mg -1/2 tab at bedtime. --08:33 Tee Sarabia R.N. Levothyroxine Sodium Oral 50 mcg, daily. --08:34 Tee Sarabia R.N. Lisinopril Oral 5 mg, 2x a day. --08:34 Tee Sarabia R.N. Vitamin D-3 Oral (Tablet 5000 unit) 1 tablet, daily. --08:35 Tee Sarabia R.N. Citalopram Hydrobromide Oral (Tablet 20 mg) 1 tablet, daily. --09:17 Tee Sarabia R.N. Medication/allergy information source: the patient's family. --08:36 Tee Sarabia R.N. Allergies No Known Drug Allergy. --08:33 Tee Sarabia R.N. History Arrived by private vehicle. Historian: (caregiver). Accompanied by sales consultant. Primary physician ([facility] (Unknown PCP)). 08:30 10/18/16. ( This AM). She has had anxiety and sleeping difficulties. Treatment DERRICKMAN HELPER: None. PAST MEDICAL HX: Immunizations: up-to-date. SOCIAL HX: Never smoker. Occasional alcohol use. No drug use. No infectious disease exposure. ABUSE ASSESSMENT: No report of abuse. FALL RISK ASSESSMENT: Fall risk assessment completed. No fall risk identified. NUTRITIONAL RISK ASSESSMENT: The nutritional risk assessment revealed no deficiencies. FUNCTIONAL ASSESSMENT: Functional assessment: no impairments noted. LEARNING NEEDS ASSESSMENT: The learning needs assessment revealed no barriers. SKIN INTEGRITY ASSESSMENT: Skin integrity risk assessment completed. No skin integrity risk identified. --08:36 Tee Sarabia R.N. PROBLEMS: Contusion. Rib Fracture. Drug Poisoning. Changed Mental Status. Thyroid Disease. Insomnia. Dementia. Hypertension. --08:36 Tee Sarabia R.N. ADDITIONAL SURGERIES: Hysterectomy. --08:36 Tee Sarabia R.N. Assessment 08:30 10/18/16. --08:36 Tee Sarabia R.N. Interventions 08:30 10/18/16. 08:30 10/18/16. ID and allergy band on patient. To treatment room. --08:36 Tee Sarabia R.N. PHYSICAL ASSESSMENT 08:37 10/18/16. Patient gowned. GENERAL / NEURO / PSYCH: Alert. Oriented X 4. Appears anxious. No decreased awareness. Speech not abnormal. Patient's mood/affect appears tearful. Affect appears normal. Patient appears calm and cooperative but does not express homicidal thoughts. Good eye contact. Denies suicidal thoughts. Patient does not appear agitated. The patient not combative. RESPIRATORY: Respirations not labored. CVS: Capillary refill less than 2 seconds. SKIN: Skin is warm and dry. --08:37 Tee Sarabia R.N. NURSING PROGRESS NOTES 08:37 10/18/16. The plan of care for this patient has been created. Patient gowned. Head of bed elevated. Two patient identifiers checked. Call light placed in reach. Side rails up x 2. Bed placed in lowest position. Brakes of bed on. --08:37 Tee Sarabia R.N. 08:37 10/18/16. Patient ready for evaluation- chart flagged and notification provided. --08:37 Tee Sarabia R.N. 08:39 10/18/16. Pulse oximeter placed on patient; monitor alarms on. --08:39 Tee Sarabia R.N. 08:40 10/18/16. --08:40 Tee Sarabia R.N. 08:40 10/18/16. HR: 80. O2 saturation: 99%. --08:40 Tee Sarabia R.N. 08:44 10/18/16. Patient and family informed about reason for wait and about plan of care. --08:44 Tee Sarabia R.N. 08:44 10/18/16. Patient waiting for evaluation. --08:44 Tee Sarabia R.N. 08:45 10/18/16. ( Gave pt water, pt up to void). --08:45 Tee Sarabia R.N. DISPOSITION / DISCHARGE 09:39 10/18/16. Departure time: 930. Condition at departure: improved and stable. Ability to learn limited by dementia; teaching performed with the sales consultant. Reviewed medication(s) side effects, precautions, dosing and course information. Patient and otolaryngology rep verbalized understanding. Written instructions provided in [place]. The patient was discharged by the physician. She was discharged home and accompanied by otolaryngology rep. She left the Emergency Department ambulatory and via private vehicle. Residential Real Estate Sales Manager driving. --09:39 Fernanda Chatterjee R.N. 09:37 10/18/16. BP: 137/95. HR: 79. RR: 16. O2 saturation: 97% on room air. Pain level now 0/10. --09:39 Fernanda Chatterjee R.N. Locked/Released at 10/19/2016 9:42 by Cherelle Talavera R.N.
--- NOTE | 2016-10-18 09:21 | ED CLINICAL REPORT ---
Clinical Report - Physicians/Mid Levels [facility] [address] [place] [address] 10/18/2016 8:21 Patient: YAHAIRA STALLWORTH Time Seen: 09:02; initial patient contact. Arrived- By private vehicle. Historian- patient. HISTORY OF PRESENT ILLNESS Chief Complaint: ANXIOUS, DEPRESSED and BEHAVIOR CHANGE. This started last night. No situational problems or recent drug use or alcohol consumption. She has not exhibited a behavior change and was not found wandering. She is non-compliant with medication (Out of her Citalopram for a few days). Has been depressed but eating. Has not been sleeping. She has had anxiety. No unusual behavior, paranoia, delusions, suicidal thoughts or self-injury inflicted. No hallucinations. The symptoms are described as mild. No injury is present. Similar symptoms previously: None. Recent medical care: Not recently seen/assessed. REVIEW OF SYSTEMS No headache, chest pain or palpitations. She has had dizziness. All systems otherwise negative, except as recorded above. PAST HISTORY ( Contusion. Rib Fracture. Drug Poisoning. Changed Mental Status. Thyroid Disease. Insomnia. Dementia. --08:36 Tee Sarabia R.N. ADDITIONAL SURGERIES: Hysterectomy.). SOCIAL HISTORY Never smoker. Occasional alcohol use. ADDITIONAL NOTES The nursing notes have been reviewed. PHYSICAL EXAM Vital Signs: 10/18/2016 08:37 BP: 177/66. HR: 80. RR: 22. O2 saturation: 100%. Temp: 98.2 F. Have been reviewed. Hypertensive. Heart rate normal. Tachypneic. Temperature normal. Oxygen saturation normal. Appearance: Alert. No acute distress. Appearance is normal. CVS: Normal heart rate and rhythm. Heart sounds normal. Respiratory: No respiratory distress. Breath sounds normal. Skin: Normal skin color. Psych / Neuro: Oriented X 3. Mood and affect normal. Speech normal. Cognition normal. Thought process and content normal. Insight and judgement normal. PROGRESS AND PROCEDURES Disposition: Discharged home in good condition. Condition: good. 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 INSTRUCTIONS Your Current Medications: CONTINUE TAKING THE FOLLOWING MEDICATIONS: Citalopram Hydrobromide Oral : Tablet 20 mg, 1 tablet daily. Levothyroxine Sodium Oral : 50 mcg daily. Lisinopril Oral : 5 mg 2x a day. Trazodone 50mg -1/2 tab at bedtime*. Vitamin D-3 Oral : Tablet 5000 unit, 1 tablet daily. Prescription Medications: Celexa 20 mg: take 1 orally every day. Dispense fifteen (15). No refill. Substitution is permissible. Follow-up: Follow up with your doctor in about two days. Call for an appointment. Blood pressure screening was not performed during this visit because the patient has an active diagnosis of hypertension. (Electronically signed by Jorge Grady Dr. 10/18/2016 9:33)
--- NOTE | 2016-10-18 09:21 | ED CLINICAL REPORT ---
Clinical Report - Physicians/Mid Levels [facility] [address] [place] [address] 10/18/2016 8:21 Patient: YAHAIRA STALLWORTH Time Seen: 09:02; initial patient contact. Arrived- By private vehicle. Historian- patient. HISTORY OF PRESENT ILLNESS Chief Complaint: ANXIOUS, DEPRESSED and BEHAVIOR CHANGE. This started last night. No situational problems or recent drug use or alcohol consumption. She has not exhibited a behavior change and was not found wandering. She is non-compliant with medication (Out of her Citalopram for a few days). Has been depressed but eating. Has not been sleeping. She has had anxiety. No unusual behavior, paranoia, delusions, suicidal thoughts or self-injury inflicted. No hallucinations. The symptoms are described as mild. No injury is present. Similar symptoms previously: None. Recent medical care: Not recently seen/assessed. REVIEW OF SYSTEMS No headache, chest pain or palpitations. She has had dizziness. All systems otherwise negative, except as recorded above. PAST HISTORY ( Contusion. Rib Fracture. Drug Poisoning. Changed Mental Status. Thyroid Disease. Insomnia. Dementia. --08:36 Tee Sarabia R.N. ADDITIONAL SURGERIES: Hysterectomy.). SOCIAL HISTORY Never smoker. Occasional alcohol use. ADDITIONAL NOTES The nursing notes have been reviewed. PHYSICAL EXAM Vital Signs: 10/18/2016 08:37 BP: 177/66. HR: 80. RR: 22. O2 saturation: 100%. Temp: 98.2 F. Have been reviewed. Hypertensive. Heart rate normal. Tachypneic. Temperature normal. Oxygen saturation normal. Appearance: Alert. No acute distress. Appearance is normal. CVS: Normal heart rate and rhythm. Heart sounds normal. Respiratory: No respiratory distress. Breath sounds normal. Skin: Normal skin color. Psych / Neuro: Oriented X 3. Mood and affect normal. Speech normal. Cognition normal. Thought process and content normal. Insight and judgement normal. PROGRESS AND PROCEDURES Disposition: Discharged home in good condition. Condition: good. 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 INSTRUCTIONS Your Current Medications: CONTINUE TAKING THE FOLLOWING MEDICATIONS: Citalopram Hydrobromide Oral : Tablet 20 mg, 1 tablet daily. Levothyroxine Sodium Oral : 50 mcg daily. Lisinopril Oral : 5 mg 2x a day. Trazodone 50mg -1/2 tab at bedtime*. Vitamin D-3 Oral : Tablet 5000 unit, 1 tablet daily. Prescription Medications: Celexa 20 mg: take 1 orally every day. Dispense fifteen (15). No refill. Substitution is permissible. Follow-up: Follow up with your doctor in about two days. Call for an appointment. Blood pressure screening was not performed during this visit because the patient has an active diagnosis of hypertension. (Electronically signed by Jorge Grady Dr. 10/18/2016 9:33)
--- NOTE | 2016-10-18 09:21 | ED NURSING NOTES ---
Clinical Report - Nurses [facility] [address] [place] [address] 10/18/2016 8:21 Patient: YAHAIRA STALLWORTH TRIAGE Triage time 08:30. Acuity: LEVEL 4. Chief Complaint: ANXIETY. 08:30 10/18/16. 08:30 10/18/16. Alert. No acute distress. ( Pt did not sleep all night and pacing the floor, crying. Pt states she is stressed but does not know the stessors. Per caregiver pt has dementia.). SEPSIS SCREEN: Sepsis Screen. Negative (no infection suspected/documented). UJVENTINO COMA SCORE: Juventino Coma Scale: 15- eyes open spontaneously (4); best verbal response- oriented x 4 (5); best motor response- obeys commands (6). --08:36 Tee Sarabia R.N. <<STRICKEN ENTRY-- 08:29 10/18/16. BP: 166. HR: 85. RR: 18. O2 saturation: 100%. Temp: 98.2 F (oral). Pain level now: 0/10. --08:36 Tee Sarabia R.N. --END STRIKE>> Correction. --08:37 Tee Sarabia R.N. 08:37 10/18/16. BP: 177/66. HR: 80. RR: 22. O2 saturation: 100%. Temp: 98.2 F (oral). --08:38 Tee Sarabia R.N. Weight: 70.3 kg stated. Height/Length: 62 inches Per Patient. BMI: 28.4. --08:32 Tee Sarabia R.N. Medications Trazodone 50mg -1/2 tab at bedtime. --08:33 Tee Sarabia R.N. Levothyroxine Sodium Oral 50 mcg, daily. --08:34 Tee Sarabia R.N. Lisinopril Oral 5 mg, 2x a day. --08:34 Tee Sarabia R.N. Vitamin D-3 Oral (Tablet 5000 unit) 1 tablet, daily. --08:35 Tee Sarabia R.N. Citalopram Hydrobromide Oral (Tablet 20 mg) 1 tablet, daily. --09:17 Tee Sarabia R.N. Medication/allergy information source: the patient's family. --08:36 Tee Sarabia R.N. Allergies No Known Drug Allergy. --08:33 Tee Sarabia R.N. History Arrived by private vehicle. Historian: (caregiver). Accompanied by printed circuit boards beveler. Primary physician ([facility] (Unknown PCP)). 08:30 10/18/16. ( This AM). She has had anxiety and sleeping difficulties. Treatment PHARMACEUTICAL WORKER: None. PAST MEDICAL HX: Immunizations: up-to-date. SOCIAL HX: Never smoker. Occasional alcohol use. No drug use. No infectious disease exposure. ABUSE ASSESSMENT: No report of abuse. FALL RISK ASSESSMENT: Fall risk assessment completed. No fall risk identified. NUTRITIONAL RISK ASSESSMENT: The nutritional risk assessment revealed no deficiencies. FUNCTIONAL ASSESSMENT: Functional assessment: no impairments noted. LEARNING NEEDS ASSESSMENT: The learning needs assessment revealed no barriers. SKIN INTEGRITY ASSESSMENT: Skin integrity risk assessment completed. No skin integrity risk identified. --08:36 Tee Sarabia R.N. PROBLEMS: Contusion. Rib Fracture. Drug Poisoning. Changed Mental Status. Thyroid Disease. Insomnia. Dementia. Hypertension. --08:36 Tee Sarabia R.N. ADDITIONAL SURGERIES: Hysterectomy. --08:36 Tee Sarabia R.N. Assessment 08:30 10/18/16. --08:36 Tee Sarabia R.N. Interventions 08:30 10/18/16. 08:30 10/18/16. ID and allergy band on patient. To treatment room. --08:36 Tee Sarabia R.N. PHYSICAL ASSESSMENT 08:37 10/18/16. Patient gowned. GENERAL / NEURO / PSYCH: Alert. Oriented X 4. Appears anxious. No decreased awareness. Speech not abnormal. Patient's mood/affect appears tearful. Affect appears normal. Patient appears calm and cooperative but does not express homicidal thoughts. Good eye contact. Denies suicidal thoughts. Patient does not appear agitated. The patient not combative. RESPIRATORY: Respirations not labored. CVS: Capillary refill less than 2 seconds. SKIN: Skin is warm and dry. --08:37 Tee Sarabia R.N. NURSING PROGRESS NOTES 08:37 10/18/16. The plan of care for this patient has been created. Patient gowned. Head of bed elevated. Two patient identifiers checked. Call light placed in reach. Side rails up x 2. Bed placed in lowest position. Brakes of bed on. --08:37 Tee Sarabia R.N. 08:37 10/18/16. Patient ready for evaluation- chart flagged and notification provided. --08:37 Tee Sarabia R.N. 08:39 10/18/16. Pulse oximeter placed on patient; monitor alarms on. --08:39 Tee Sarabia R.N. 08:40 10/18/16. --08:40 Tee Sarabia R.N. 08:40 10/18/16. HR: 80. O2 saturation: 99%. --08:40 Tee Sarabia R.N. 08:44 10/18/16. Patient and family informed about reason for wait and about plan of care. --08:44 Tee Sarabia R.N. 08:44 10/18/16. Patient waiting for evaluation. --08:44 Tee Sarabia R.N. 08:45 10/18/16. ( Gave pt water, pt up to void). --08:45 Tee Sarabia R.N. DISPOSITION / DISCHARGE 09:39 10/18/16. Departure time: 930. Condition at departure: improved and stable. Ability to learn limited by dementia; teaching performed with the printed circuit boards beveler. Reviewed medication(s) side effects, precautions, dosing and course information. Patient and ship construction teacher verbalized understanding. Written instructions provided in [place]. The patient was discharged by the physician. She was discharged home and accompanied by ship construction teacher. She left the Emergency Department ambulatory and via private vehicle. Supervisor Drapery Hanging driving. --09:39 Fernanda Chatterjee R.N. 09:37 10/18/16. BP: 137/95. HR: 79. RR: 16. O2 saturation: 97% on room air. Pain level now 0/10. --09:39 Fernanda Chatterjee R.N. Locked/Released at 10/19/2016 9:42 by Cherelle Talavera R.N.
--- NOTE | 2016-10-19 09:42 | ED DISCHARGE INSTRUCTIONS ---
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 INSTRUCTIONS Your Current Medications: CONTINUE TAKING THE FOLLOWING MEDICATIONS: Citalopram Hydrobromide Oral : Tablet 20 mg, 1 tablet daily. Levothyroxine Sodium Oral : 50 mcg daily. Lisinopril Oral : 5 mg 2x a day. Trazodone 50mg -1/2 tab at bedtime*. Vitamin D-3 Oral : Tablet 5000 unit, 1 tablet daily. Prescription Medications: Celexa 20 mg: take 1 orally every day. Dispense fifteen (15). No refill. Substitution is permissible. Follow-up: Follow up with your doctor in about two days. Call for an appointment. Blood pressure screening was not performed during this visit because the patient has an active diagnosis of hypertension. ADDITIONAL INFORMATION Depression Depression is one of the most common mental health problems today. It is not just a state of unhappiness or sadness. It is a true disease. The cause seems to be related to a decrease in chemicals that transmit signals in the brain. Having a family history of depression, alcoholism or suicide increases the risk. Chronic illness, chronic pain, migraine headaches and high emotional stress also increase the risk. Depression can cause many different symptoms, such as: -- Loss of appetite -- Over-eating -- Not being able to sleep -- Sleeping too much -- Tiredness not related to physical exertion -- Restlessness or irritability -- Slowness of movement or speech -- Feeling depressed or withdrawn -- Loss of interest in things you once enjoyed -- Difficulty in concentrating, poor memory, have trouble making decisions -- Thoughts of harming or killing oneself, or thoughts that life is not worth living -- Low self-esteem The best treatment for depression is a combination of medicine and psychotherapy. Antidepressant medicines can reduce suffering and can improve the ability to function during the depressed period. Therapy can offer emotional support and help you understand emotional factors that may be causing the depression. Home Care: 1) Be kind to yourself. Make it a point to do things that you enjoy (gardening, walking in nature, going to a movie, etc.). Reward yourself for small successes. 2) Take care of your physical body. Eat a balanced diet (low in saturated fat and high in fruits and vegetables). Establish an exercise plan at least 3 times a week for 30 minutes. Even mild-moderate exercise (like brisk walking) can make you feel better. 3) Avoid alcohol, which can make depression worse. Follow-Up with your doctor as advised. It is important to keep in contact with a health care provider until your symptoms begin to improve. Get Prompt Medical Attention if any of the following occur: -- Feeling extreme depression, fear, anxiety, or anger toward yourself or others -- Feeling out of control -- Feeling that you may try to harm yourself or another -- Hearing voices that others do not hear -- Seeing things that others do not see -- Cant sleep or eat for 3 days in a row You have been given the following additional information: Depression (Electronically signed by Jorge Grady Dr. 10/18/2016 9:33)
--- NOTE | 2016-10-19 09:42 | ED MAR SUMMARY ---
..... Medication Administration Record [facility] [address] [place], [place] [id number] Patient: YAHAIRA STALLWORTH Visit ID: [id number] 80y, F Weight: 70.3 kg Height/Length: 62 in BMI: 28.4 ALLERGIES: No Known Drug Allergy
--- NOTE | 2016-10-19 09:42 | ED MAR SUMMARY ---
..... Medication Administration Record [facility] [address] [place], [place] [id number] Patient: YAHAIRA STALLWORTH Visit ID: [id number] 80y, F Weight: 70.3 kg Height/Length: 62 in BMI: 28.4 ALLERGIES: No Known Drug Allergy
--- NOTE | 2016-10-19 09:42 | ED MED RECONCILIATION SUMMARY ---
Patient: YAHAIRA STALLWORTH Medication Reconciliation Report [facility] VisitID: [id number] [address] [place] [address] 80y, F Registration Date/Time: 10/18/2016 Weight: 70.3 kg Height/Length: 62 in. BMI: 28.4 ALLERGIES: No Known Drug Allergy The patient's Home Medications are listed below: CONTINUE TAKING THE FOLLOWING MEDICATIONS: Citalopram Hydrobromide Oral (20 mg) 1 tablet, daily Levothyroxine Sodium Oral 50 mcg, daily Lisinopril Oral 5 mg, 2x a day Trazodone 50mg -1/2 tab at bedtime Vitamin D-3 Oral (5000 unit) 1 tablet, daily The source(s) of the original Home Medication information: patient's family member The following Medications were given to the patient in the Emergency Department: None. The following Medications were prescribed to the patient: Celexa 20 mg: take 1 orally every day. Dispense fifteen (15). No refill. Substitution is permissible. -- Jorge Grady Dr.
--- NOTE | 2016-10-19 09:42 | ED MED RECONCILIATION SUMMARY ---
Patient: YAHAIRA STALLWORTH Medication Reconciliation Report [facility] VisitID: [id number] [address] [place] [address] 80y, F Registration Date/Time: 10/18/2016 Weight: 70.3 kg Height/Length: 62 in. BMI: 28.4 ALLERGIES: No Known Drug Allergy The patient's Home Medications are listed below: CONTINUE TAKING THE FOLLOWING MEDICATIONS: Citalopram Hydrobromide Oral (20 mg) 1 tablet, daily Levothyroxine Sodium Oral 50 mcg, daily Lisinopril Oral 5 mg, 2x a day Trazodone 50mg -1/2 tab at bedtime Vitamin D-3 Oral (5000 unit) 1 tablet, daily The source(s) of the original Home Medication information: patient's family member The following Medications were given to the patient in the Emergency Department: None. The following Medications were prescribed to the patient: Celexa 20 mg: take 1 orally every day. Dispense fifteen (15). No refill. Substitution is permissible. -- Jorge Grady Dr.
== END 2016-10-18 09:31 | disposition home or self-care (01) ==
LOC: ED SRH 08:20
DX: F33.9 Major depressive disorder, recurrent, unspecified (principal); I10 Essential (primary) hypertension; Z79.899 Other long term (current) drug therapy